=== PATIENT | male | born 1945 | race Caucasian/White ===

== ENCOUNTER 2016-10-08 14:43 | Outpatient (CLI) | payer MEDICARE ==
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
== END 2016-10-08 14:44 | disposition home or self-care (01) ==
LOC: VAS 14:43
PROVIDERS: ATTEND Internal Medicine
DX: R22.42 Localized swelling, mass and lump, left lower limb (principal)

== ENCOUNTER 2016-12-31 08:52 | Outpatient (CLI) | payer MEDICARE ==
--- NOTE | 2016-12-31 09:45 | XRay Report ---
CHEST 2 VIEWS INDICATION: DVT. COMPARISON: None similar. FINDINGS: Frontal and lateral chest radiographs demonstrate normal cardiomediastinal silhouette and clear lungs, given the inspiration. Replaced left shoulder. Advanced right shoulder degenerative changes. Demineralized bones with mild thoracic spondylosis as well. CONCLUSION: No acute chest process with other findings, as above. Thank you for the opportunity to participate in this patient's care.
--- NOTE | 2017-01-01 07:58 | Vascular Lab Report ---
Left Lower Extremity Venous Duplex Study: Reason for Exam: History of DVT. Comments on the Right: A limited duplex study was done of the proximal veins of the right lower extremity. All veins visualized are freely compressible without evidence of internal echogenicity. Flow is spontaneous and phasic throughout. No evidence of acute or chronic thrombus is seen in any of the vessels visualized. Comments on the Left: Deep venous thrombosis is noted in the posterior tibial and peroneal veins extending into the popliteal vein. The remaining veins visualized are freely compressible without evidence of internal echogenicity. Spontaneous and phasic flow is present proximally. Impression: Deep venous thrombosis in the left lower extremity
== END 2016-12-31 08:53 | disposition home or self-care (01) ==
LOC: VAS 08:52
PROVIDERS: ATTEND Internal Medicine
DX: I82.442 Acute embolism and thrombosis of left tibial vein (principal); I82.492 Acute embolism and thrombosis of other specified deep vein of left lower extremity; M19.011 Primary osteoarthritis, right shoulder; M47.814 Spondylosis without myelopathy or radiculopathy, thoracic region
CPT/HCPCS: 71020

== ENCOUNTER 2017-05-27 07:49 | Outpatient (CLI) | payer MEDICARE ==
--- NOTE | 2017-05-28 10:03 | Vascular Lab Report ---
Left Lower Extremity Venous Duplex Study: Reason for Exam: History of DVT . Comments on the Right: A limited duplex study was done of the proximal veins of the right lower extremity. All veins visualized are freely compressible without evidence of internal echogenicity. Flow is spontaneous and phasic throughout. No evidence of acute or chronic thrombus is seen in any of the vessels visualized. Comments on the Left: Nonocclusive deep venous thrombosis in the popliteal vein.. The remaining veins visualized are freely compressible without evidence of internal echogenicity. Spontaneous and phasic flow is present proximally. Impression: Chronic deep venous thrombosis in the left lower extremity are in
== END 2017-05-27 07:50 | disposition home or self-care (01) ==
LOC: VAS 07:49
PROVIDERS: ATTEND Internal Medicine
DX: I82.532 Chronic embolism and thrombosis of left popliteal vein (principal)